=== PATIENT | male | born 1970 | race Caucasian/White ===

== ENCOUNTER → 2016-11-08 | Outpatient (CLI) | payer BC, SELFPAY ==
--- NOTE | 2016-11-09 08:15 | REP ---
CHEST X-RAY: Two views. HISTORY: Chest pain. FINDINGS: The lungs are well inflated and clear. The pleural angles are sharp. Heart size is normal. Pulmonary vasculature is not increased. IMPRESSION: No active disease. Signed by Finesse Petit MD 11/09/2016 08:25 A
== END ==
LOC: M RAD 19:44
PROVIDERS: ATTEND Registered Nurse
DX: R07.9 Chest pain, unspecified (principal)

== ENCOUNTER 2023-03-25 11:26 | Emergency (ER) | payer BC, OTHER ==
[~2023-03-25] VITALS: Ht 170.2 cm; Wt 100.5 kg
[2023-03-25 11:27] VITALS: TEMP 96.5
[2023-03-25] MEDS ORDERED: ALBU2TAB13 PO (11:36)
[2023-03-25 13:28] VITALS: BP 150/85; O2SAT 98
== END 2023-03-25 13:30 | disposition home or self-care (01) ==
LOC: M ED 11:26
DX: S63.654A Sprain of metacarpophalangeal joint of right ring finger, initial encounter (principal); W01.0XXA Fall on same level from slipping, tripping and stumbling without subsequent striking against object, initial encounter; Y92.9 Unspecified place or not applicable; Y93.89 Activity, other specified; Y99.0 Civilian activity done for income or pay; J45.909 Unspecified asthma, uncomplicated

== ENCOUNTER 2023-10-01 12:13 | Emergency (ER) | payer OTHER ==
[~2023-10-01] VITALS: Ht 170.2 cm; Wt 97.5 kg
[~2023-10-01 12:13] MED LIST: ALBU2TAB13 PO
[2023-10-01] MEDS: diazePAM 5MG TABLET PO ONE (14:53)
[2023-10-01] MEDS: KETOROLAC 30 MG/ML 1ML VIAL IM ONE (14:53)
[2023-10-01] MEDS: LIDOCAINE 5% (LIDODERM) PATCH TD ONE (14:53)
[2023-10-01] MEDS ORDERED: LIDO5DIS41 TD (15:36)
[2023-10-01] MEDS ORDERED: NAPR-837 PO (15:36)
[2023-10-01] MEDS ORDERED: METH-1164 PO (15:36)
[2023-10-01 15:42] VITALS: BP 137/86; TEMP 97.1; O2SAT 97
== END 2023-10-01 15:44 | disposition home or self-care (01) ==
LOC: M ED 12:13
DX: M62.830 Muscle spasm of back (principal); J45.909 Unspecified asthma, uncomplicated; Z79.51 Long term (current) use of inhaled steroids; Z79.899 Other long term (current) drug therapy
CPT/HCPCS: 96372; 99283; J1885